=== PATIENT | male | born 1985 | race American Indian/Alaskan Native ===

== ENCOUNTER 2021-05-05 00:30 | Emergency (ER) | payer OTHER ==
[2021-05-05] MEDS ORDERED: MORPHINE 4 MG/1 ML INJ IM ONE (00:47)
--- NOTE | 2021-05-05 00:50 | Emergency Department Report ---
HPI - General Time Seen by Provider: 05/05/21 00:42 - HPI HPI: This is a 35-year-old -[place] male presents to the emergency department with complaint of left knee pain and concern for a dislocation. The patient was sitting on the back of a trunk and stood up and turned around to get some pillows and says "my knee twisted." He denies any past medical history. He did not take anything, nor receive anything, for his symptoms prior to presentation. Currently the pain is mostly to the anterior knee and is 9 out of 10 in intensity. It worsens with any movement or palpation. No known alleviating factors. ED Past Medical Hx - Medications Home Medications: Home Medications Medication Instructions Recorded Confirmed Last Taken Type Ibuprofen [Motrin 800 MG tab] 800 mg PO Q8HR PRN #20 tablet 05/05/21 Unknown Rx ED Review of Systems ROS: Stated complaint: DISLOCATED KNEE Other details as noted in HPI Comment: All other systems reviewed and negative Constitutional: denies: chills, fever Eyes: denies: eye pain, vision change ENT: denies: ear pain, throat pain Respiratory: denies: cough, shortness of breath Cardiovascular: denies: chest pain, palpitations Gastrointestinal: denies: abdominal pain, vomiting Genitourinary: denies: dysuria, discharge Musculoskeletal: arthralgia. denies: back pain Skin: denies: rash, lesions Neurological: denies: numbness, paresthesias Physical Exam - Physical Exam Physical Exam: GENERAL: The patient is well-developed well-nourished. HENT: Normocephalic. Atraumatic. Patient has moist mucous membranes. EYES: Extraocular motions are intact. NECK: Supple. Trachea is midline. CHEST/LUNGS: Clear to auscultation. There is no respiratory distress noted. HEART/CARDIOVASCULAR: Regular. There is no tachycardia. There is no murmur. ABDOMEN: Abdomen is soft, nontender. Patient has normal bowel sounds. SKIN: Skin is warm and dry. NEURO: The patient is awake, alert, and oriented. The patient is cooperative. The patient has no focal neurologic deficits. Normal speech. MUSCULOSKELETAL: There is tenderness to palpation of the left knee. The patella appears laterally dislocated/displaced. There is decreased range of motion of the left lower extremity, specifically at the knee, secondary to pain. Dorsalis pedis pulse +2/4 and capillary refill less than 2 seconds to the affected left lower extremity. - Orthopedic Joint Reduction Joint #1 Consent Obtained: verbal consent Time Out Performed: Yes Side: left Joint Reduction Location: knee/patella Analgesia: none (IV analgesia) Shoulder Technique Used (if applicable): other (Medial manipulation of the patella with knee extension) Post-Reduction Neuro Exam: intact Post-Reduction Vascular Exam: intact Post Reduction X-Ray Obtained: No Splint Applied: Yes Patient Tolerated Procedure: well ED Medical Decision Making - Radiology Data Radiology results: image reviewed interpreted by me: X-ray of the left knee does not show any fracture, but the patella appears laterally dislocated/displaced. - Medical Decision Making This patient presents with a patellar dislocation. He is neurovascularly intact. X-ray did not show any fracture, foreign body, soft tissue gas. The patient was given a dose of IV analgesia and then I was able to successfully reduce the patellar dislocation. The patient remained neurovascularly intact after the procedure and after knee immobilizer placement. He will remain in the knee immobilizer and use crutches as needed until follow-up with an orthopedist. Critical Care Time: No Critical care attestation.: If time is entered above; I have spent that time in minutes in the direct care of this critically ill patient, excluding procedure time. ED Disposition Clinical Impression: Patellar dislocation Qualifiers: Encounter type: initial encounter Laterality: left Qualified Code(s): S83.005A - Unspecified dislocation of left patella, initial encounter Disposition: DC-01 TO HOME OR SELFCARE Is pt being admited?: No Condition: Stable Instructions: Patellar Dislocation, How to Use a Knee Brace Additional Instructions: Remain in the knee immobilizer until follow-up with an orthopedist. Please follow-up with an orthopedist regarding your knee pain and the dislocation of your patella. X-ray did not show any fractures, but x-rays do not show ligaments, tendons or the meniscus. I have given you a referral for 2 different local orthopedic groups, Dr. Mora and Raysa. Return to the emergency department with any worsening of your symptoms, new or concerning symptoms not addressed during this current emergency department visit, or with any acute distress. Prescriptions: Ibuprofen [Motrin 800 MG tab] 800 mg PO Q8HR PRN #20 tablet PRN Reason: Pain , Severe (7-10) Referrals: AIDE MORA MD [Staff Physician] - 3-5 Days [facility] [Provider Group] - 3-5 Days Time of Disposition: 02:10
--- NOTE | 2021-05-05 01:49 | XRay Report ---
Is HISTORY:left knee pain, patellar vs joint dislocation COMPARISON: None. TECHNIQUE: AP lateral and obliques views were obtained FINDINGS: Bones: No fracture or dislocation. Joint spaces: Maintained. Soft tissues: No significant abnormality. Additional findings: None. IMPRESSION: 1. No significant abnormality. Signer Name: Sourav Cabrera MD Signed: 05/05/2021 1:44 AM Workstation Name: [id number]
[2021-05-05 02:15] VITALS: BP 146/96
== END 2021-05-05 02:31 | disposition home or self-care (01) ==
LOC: ED 00:30
DX: S83.095A Other dislocation of left patella, initial encounter (principal); Z79.899 Other long term (current) drug therapy; X50.1XXA Overexertion from prolonged static or awkward postures, initial encounter; Y93.89 Activity, other specified; Y92.89 Other specified places as the place of occurrence of the external cause; Y99.8 Other external cause status
CPT/HCPCS: 27560; 73564; 96372; 99283; J2270